=== PATIENT | male | born 1985 | race Caucasian/White ===

== ENCOUNTER 2022-06-06 08:22 | Emergency (ER) | payer MEDICAID, SELFPAY ==
[2022-06-06 08:26] VITALS: BP 145/99; PULSE 85; RESP 14; TEMP 36.2; O2SAT 100; BMI 36.9
--- NOTE | 2022-06-06 08:40 | EDS_ITS ---
HPI History of Present Illness Chief Complaint: Rash Narrative Narrative: Patient had a caterpillar fall on his neck while Fishing, he developed significant itching, he now has hives. He has no nausea vomiting or shortness of breath. This happened about 6 hours ago. No fevers or chills or any other symptoms. The hives are generalized the back of the neck has a raised lesion that is itchy. [facility] Medical History Back pain Home Medications gabapentin 300 mg tablet 900 mg PO DAILY 06/06/22 [History Last Taken Unknown] meloxicam 15 mg tablet (Mobic) 15 mg PO DAILY 06/06/22 [History Last Taken Unknown] Allergy/AdvReac Type Severity Reaction Status Date / Time celecoxib [From Celebrex] Allergy Hives Verified 06/06/22 08:26 trazodone AdvReac Upset Verified 06/06/22 08:26 Stomach Social History Smoking Status: Smoker, status unknown tobacco type: cigarettes ROS ROS ED ROS Narrative Past medical history: Reviewed Medications: Reviewed Social history: Noncontributory Review of systems: All systems negative except as indicated General: No fever Eyes: No visual changes ENT: No upper airway congestion, normal voice Neck: No neck pain Cardiovascular: No chest pain Respiratory: No shortness of breath or cough Gastrointestinal: No abdominal pain, nausea vomiting or diarrhea Genitourinary: No dysuria Musculoskeletal: Denies myalgias no difficulty with ambulation Skin: As in HPI Neurological: No memory loss, confusion or any focal weakness Psych: No recent behavioral changes Hematologic: No easy bleeding or easy bruising EXAM Physical Exam Narrative Exam Narrative: Physical exam General: Well nourished, Well developed, No Acute Distress Head: Normocephalic, Atraumatic Eyes: Conjunctiva not pale ENT: Moist mucous membranes Neck: Supple, Nontender, No lymphadenopathy Cardiovascular: Regular rate, Regular rhythm Respiratory: No distress, CTA bilaterally Abdomen: Soft, Nontender, Nondistended Back: Nontender, Normal Inspection. Negative for: CVA tenderness Extremities: Nontender, No edema Skin: He has a 10 cm lesion on the back of his neck, it is raised slightly erythematous, no induration or fluctuance this appears allergic and not infectious. He has urticaria through his abdomen chest back and extremities. Neurological: Alert, Normal Strength, Normal Sensation Psychological: Normal affect Const Vital Signs: 06/06/22 08:26 Temperature 97.2 F L Temperature Source Temporal Pulse Rate 85 Respiratory Rate 14 Blood Pressure 145/99 H Blood Pressure Mean 114 Pulse Ox 100 Oxygen Delivery Method Room Air MDM MDM MDM Narrative Medical decision making narrative: Patient has urticaria and a localized allergic reaction, because the extent of this I believe he meets criteria for steroids I gave him IM Kenalog. There is no signs or symptoms of anaphylaxis. He will be discharged in stable condition Discharge Plan Triage Chief Complaint: Rash ED Provider: Jasson Pacheco Dx/Rx/DC Orders Clinical Impression: Allergic reaction, Urticaria Instructions: ED General Allergic Reactions, ED Hives (Adult) Prescriptions: No Action meloxicam [Mobic] 15 mg Tablet 15 mg PO DAILY gabapentin 300 mg Tablet 900 mg PO DAILY Referrals: Fast,Gloria, DO [Med Staff - Drug Discovery Informatics Specialist] - 2 Days Disposition Disposition: Home, Self Care
[2022-06-06] MEDS: Triamcinolone Acetonide 40 MG/ML Vial IM (08:58)
== END 2022-06-06 09:18 | disposition home or self-care (01) ==
PROVIDERS: Emergency Provider Emergency Medicine; Visit Provider Emergency Medicine
DX: T78.40XA Allergy, unspecified, initial encounter (principal); F17.210 Nicotine dependence, cigarettes, uncomplicated; W19.XXXA Unspecified fall, initial encounter; L50.9 Urticaria, unspecified
CPT/HCPCS: 99283